=== PATIENT | female | born 1970 | race Caucasian/White ===

== ENCOUNTER 2021-12-12 11:00 | Day surgery (SDC) | payer OTHER ==
[2021-12-11 17:03] VITALS: BMI 32.4
[2021-12-12 13:21] VITALS: BP 128/80; PULSE 70; TEMP 98.8
== END 2021-12-12 13:40 | disposition home or self-care (01) ==
LOC: FASU-ENDO 11:00
PROVIDERS: ATTEND Internal Medicine Gastroenterology
PROC: 0DBH8ZX Excision of Cecum, Via Natural or Artificial Opening Endoscopic, Diagnostic (ICD-10-PCS; principal; 2021-12-12 12:29)
DX: D12.0 Benign neoplasm of cecum (principal); K64.1 Second degree hemorrhoids; K92.1 Melena; K59.00 Constipation, unspecified
CPT/HCPCS: 88305-TC